=== PATIENT | male | born 1995 | race Caucasian/White ===

== ENCOUNTER 2017-07-24 05:09 | Emergency (ER) | payer SELFPAY ==
[2017-07-24 05:09] VITALS: BP 150/85; PULSE 80; RESP 16; TEMP 36.4; O2SAT 98; BMI 28.0
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
[2017-07-24] MEDS: Naproxen 500 MG Tablet PO (05:25)
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
[2017-07-24 06:08] VITALS: BP 148/78; PULSE 80; RESP 16; O2SAT 98
== END 2017-07-24 06:08 | disposition home or self-care (01) ==
PROVIDERS: Emergency Provider Emergency Medicine
DX: S60.221A Contusion of right hand, initial encounter (principal); Y04.2XXA Assault by strike against or bumped into by another person, initial encounter; Y93.89 Activity, other specified; Y92.9 Unspecified place or not applicable; S06.0X9A Concussion with loss of consciousness of unspecified duration, initial encounter; W22.8XXA Striking against or struck by other objects, initial encounter; Z72.0 Tobacco use; S00.01XA Abrasion of scalp, initial encounter
CPT/HCPCS: 73130; 99283

== ENCOUNTER 2020-12-11 15:33 | Emergency (ER) | payer SELFPAY ==
[2020-12-11 15:34] VITALS: BP 142/87; PULSE 93; RESP 16; TEMP 36.6; O2SAT 99; BMI 32.5
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
[2020-12-11] MEDS: oxyCODONE 5 MG Tablet PO (16:48)
== END 2020-12-11 19:21 | disposition home or self-care (01) ==
PROVIDERS: Emergency Provider Emergency Medicine
DX: S93.401A Sprain of unspecified ligament of right ankle, initial encounter (principal); S20.211A Contusion of right front wall of thorax, initial encounter; M25.511 Pain in right shoulder; M25.552 Pain in left hip; M25.551 Pain in right hip; V28.4XXA Motorcycle driver injured in noncollision transport accident in traffic accident, initial encounter; Y93.89 Activity, other specified; Y92.9 Unspecified place or not applicable; Y99.9 Unspecified external cause status; Z79.1 Long term (current) use of non-steroidal anti-inflammatories (NSAID); F17.290 Nicotine dependence, other tobacco product, uncomplicated
CPT/HCPCS: 71046; 72170; 73610; 99283

== ENCOUNTER → 2022-09-04 | Outpatient (CLI) | payer SELFPAY ==
[2022-09-14 17:07] LABS: Cotinine Screen Blood 147.4 ng/mL (.); Nicotine Blood 6.9 ng/mL (.)
== END | disposition home or self-care (01) ==
PROVIDERS: Referring Provider Registered Nurse; Visit Provider Registered Nurse
DX: Z00.00 Encounter for general adult medical examination without abnormal findings (principal)
CPT/HCPCS: 80323; G0480